=== PATIENT | female | born 1940 | race Caucasian/White ===

== ENCOUNTER → 2019-12-26 09:27 | Outpatient (CLI) | payer MEDICARE, OTHER, SELFPAY ==
--- NOTE | 2019-12-26 | DI.US.S_ITS ---
ULTRASOUND OF LEFT BREAST AND AXILLA: 12/26/2019 CLINICAL: Lt axillary lymph node seen on CT. Comparison is made to exam dated: 12/26/[address] [facility] pulmonary angiogram 12/12/2019. Color flow and real-time ultrasound of the left breast axilla were performed. Patel scale images of the real-time examination were reviewed. There is a benign 1.5 cm x 1.2 cm x 0.6 cm oval normal lymph node with a circumscribed margin in the left axillary tail. This oval normal lymph node is hypoechoic with fatty hilum. This correlates with area of clinical concern as seen on prior CT. Color flow imaging demonstrates that there is increased vascularity. No cortical thickening. There also is a benign 1 cm x 0.7 cm x 0.4 cm oval normal lymph node with a circumscribed margin in the left axillary tail. This oval normal lymph node is hypoechoic with fatty hilum. Color flow imaging demonstrates that there is vascularity present. No cortical thickening. IMPRESSION: BENIGN There is no sonographic evidence of malignancy. Left axillary lymph nodes are within normal limits. Return to screening mammogram schedule. However, recommend PET/CT for abnormality seen in the left pleura. Results discussed with Dr. Jenniffer Parada. This exam was interpreted at Station ID: [id number]. Electronically Signed By: João Andres M.D. [facility] [place]/:12/26/2019 14:19:45 letter sent: Normal Exam Ultrasound BI-RADS: 2 Benign
--- NOTE | 2019-12-26 | DI.MG.S_ITS ---
BILATERAL DIGITAL DIAGNOSTIC MAMMOGRAM 3D/2D: 12/26/2019 CLINICAL: Left prominent axially lymph node seen on CT chest 12/12/2019. Prior mammograms 03/26/2017, 12/18/2014. Prior CT pulmonary angiogram 12/12/2019, CT chest 11/21/2019, CT chest 11/15/2019. The tissue of both breasts is heterogeneously dense. This may lower the sensitivity of mammography. There is an oval high density asymmetry in the right breast middle depth superior region seen on the mediolateral oblique view only. This is not seen in additional views. No other significant masses, calcifications, or other findings are seen in either breast. Vascular calcifications. No enlarged axillary lymph nodes are seen. IMPRESSION: INCOMPLETE: NEEDS ADDITIONAL IMAGING EVALUATION The oval high density asymmetry in the right breast is not seen on additional views and is consistent with overlapping fibroglandular tissue and is benign. Targeted ultrasound of the left axilla is recommended for prominent lymph node seen on prior CT and will immediately follow. This exam was interpreted at Station ID: [id number]. NOTE: For mammograms, a report in lay terms will be sent to the patient. Approximately 15% of breast malignancies will not be visualized mammographically. In the management of a palpable breast mass, a negative mammogram must not discourage biopsy of a clinically suspicious lesion. Electronically Signed By: João Andres M.D. [facility]/:12/26/2019 12:44:38 ACR BI-RADS Category 0: Incomplete [id number]
== END ==
PROVIDERS: PCP Family Medicine; Referring Provider Family Medicine; Visit Provider Family Medicine
DX: R92.8 Other abnormal and inconclusive findings on diagnostic imaging of breast (principal)
CPT/HCPCS: 76642; 77066; G0279

== ENCOUNTER → 2020-01-20 12:47 | Outpatient (CLI) | payer MEDICARE, OTHER, SELFPAY ==
--- NOTE | 2020-01-27 16:01 | PM.PFT.1 ---
Pulmonary Function Test Referral & Results Date Patient Seen: 01/20/20 Requesting provider: Jamison Nuñez Results: The spirometry demonstrates an FVC of 1.25 L which is 46% of predicted. The FEV1 was measured at 1.05 L which is 52% of predicted. The FEV1/FVC ratio was 84 which is 113% of predicted. Following the administration of bronchodilator there was a 29% improvement in FEF 25-75%. No lung volumes were obtained The diffusing capacity was measured at 12.53 which is 51% of predicted. No hemoglobin value was provided, so no correction for potential anemia could be made, if appropriate. Interpretation: This study demonstrates moderately severe obstructive lung disease based on reduction FEV1. There is minimal evidence of improvement following bronchodilator based on improvement in FEF 25-75% as above suggesting small airway flow was improved No lung volumes were obtained so no information regarding possible restrictive lung disease this possible from this study Patient with moderately severe reduction in diffusing capacity as above, unless patient is anemic
== END ==
PROVIDERS: PCP Family Medicine
DX: R06.02 Shortness of breath (principal)
CPT/HCPCS: 94060; 94729

== ENCOUNTER → 2020-04-09 14:18 | Outpatient (CLI) | payer MEDICARE, OTHER, SELFPAY | PROVIDERS: PCP Family Medicine; Referring Provider Family Medicine; Visit Provider Family Medicine | DX: M85.851 Other specified disorders of bone density and structure, right thigh (principal); Z78.0 Asymptomatic menopausal state | CPT/HCPCS: 77080 ==